=== PATIENT | male | born 1990 | race Caucasian/White ===

== ENCOUNTER 2024-09-03 17:33 | Inpatient (IN) | payer MEDICAID ==
[~2024-09-03] VITALS: Ht 185.4 cm; Wt 88.0 kg
[2024-09-03 18:36] LABS: BASOPHILS # (AUTO) 0.1 X10'3 (0-0.2); BASOPHILS % (AUTO) 0.5 % (0-1); EOSINOPHILS # (AUTO) 0.1 X10'3 (0-0.9); HEMATOCRIT 40.4 % (42.0-52.0); HEMOGLOBIN 13.7 g/dl (14.0-17.9); LYMPHOCYTES # (AUTO) 1.2 X10'3 (1.1-4.8); LYMPHOCYTES % (AUTO) 10.9 % (21-51); MEAN CORPUSCULAR HEMOGLOBIN 29.5 PG (27.0-31.0); MEAN CORPUSCULAR VOLUME 86.6 FL (78-98); MEAN PLATELET VOLUME 8.9 FL (7.4-10.4); MONOCYTES # (AUTO) 1.1 X10'3 (0-0.9); MONOCYTES % (AUTO) 10.2 % (2-12); NEUTROPHILS # (AUTO) 8.2 X10'3 (1.8-7.7); NEUTROPHILS % (AUTO) 77.4 % (42-75); PLATELET COUNT 201 X10'3 (140-440); RED BLOOD COUNT 4.66 X10'6 (4.70-6.10); RED CELL DISTRIBUTION WIDTH 13.6 % (11.5-14.5); WHITE BLOOD COUNT 10.5 X10'3 (4.5-11.0)
[2024-09-03 18:40] LABS: ALBUMIN 3.7 G/DL (3.4-5.0); ANION GAP 7 (8-16); BLOOD UREA NITROGEN 12 MG/DL (7-18); BUN/CREATININE RATIO 14.8 (10.0-20.0); CALCIUM 8.7 MG/DL (8.5-10.1); CHLORIDE 107 MMOL/L (99-107); CREATININE 0.81 MG/DL (0.60-1.10); GLUCOSE 98 MG/DL (70-104); POTASSIUM 3.9 MMOL/L (3.5-5.1); SODIUM 141 MMOL/L (135-145); TOTAL CARBON DIOXIDE 26.6 MMOL/L (24-32); eCRCL 142 ML/MIN; eGFR > 90 ML/MIN
[2024-09-03] MEDS: ampicillin/sulbac 3gm/NS 100ml 100 ML IV ONE (20:22)
[2024-09-03] MEDS ORDERED: magnesium Cl slow-release 64mg tablet PO PRN (20:55)
[2024-09-03] MEDS ORDERED: acetaminophen 325mg tablet PO PRN (20:55)
[2024-09-03] MEDS ORDERED: potassium Cl 40MEQ/1/2NS 520ml 520 ML IV PRN (20:55)
[2024-09-03] MEDS ORDERED: diphenhydrAMINE 50 mg/ml inj IV PRN (20:55)
[2024-09-03] MEDS ORDERED: ondansetron/PF 4mg/2ml inj IV PRN (20:55)
[2024-09-03] MEDS ORDERED: magnesium hydroxide 30ml (MOM) UD suspension PO PRN (20:55)
[2024-09-03] MEDS ORDERED: potassium Cl 20 mEq SR tablet PO PRN ×2 (20:55)
[2024-09-03] MEDS ORDERED: magnesium sulf-water 4G/100mL 100 ML IV PRN (20:55)
[2024-09-03] MEDS ORDERED: magnesium sulf-water 2g/50mL 50 ML IV PRN (20:55)
[2024-09-03] MEDS ORDERED: diphenhydrAMINE 25mg capsule PO PRN (20:55)
[2024-09-03] MEDS ORDERED: mag hydrox/Alum hydrox/simeth 30ml oral suspension PO PRN (20:55)
[2024-09-03] MEDS: morphine 2 MG/ML inj. syringe IV PRN (21:19)
[2024-09-03 21:31] LABS: APTT 27 SECONDS (22-32); PROTHROMBIN TIME 10.3 SECONDS (9.0-12.0)
[2024-09-03 21:34] LABS: HEMOGLOBIN A1C 5.1 % (4.5-6.2)
[2024-09-03 21:41] LABS: PRO BRAIN NATRIURETIC PEPTIDE 212 PG/ML (0-125)
[2024-09-03 23:05] VITALS: BP 130/80; PULSE 84; RESP 17; TEMP 99; O2SAT 98
[2024-09-03 23:30] VITALS: RESP 17; O2SAT 98
[2024-09-03] MEDS: HYDROmorphone inj. 0.5 MG/0.5 ML DISP.SYRIN IV PRN (23:32)
[2024-09-04] MEDS: ampicill/sulbac 1.5gm/NS 100ml 100 ML IV SCH (02:39)
[2024-09-04 04:56] LABS: BASOPHILS % (AUTO) 0.6 % (0-1); EOSINOPHILS # (AUTO) 0.2 X10'3 (0-0.9); EOSINOPHILS % (AUTO) 2.1 % (0-6); HEMATOCRIT 38.3 % (42.0-52.0); HEMOGLOBIN 12.9 g/dl (14.0-17.9); LYMPHOCYTES # (AUTO) 1.7 X10'3 (1.1-4.8); LYMPHOCYTES % (AUTO) 19.9 % (21-51); MEAN CORPUSCULAR HEMOGLOBIN 29.6 PG (27.0-31.0); MEAN CORPUSCULAR HGB CONC 33.6 g/dL (33.0-36.5); MEAN CORPUSCULAR VOLUME 88.1 FL (78-98); MEAN PLATELET VOLUME 8.7 FL (7.4-10.4); MONOCYTES # (AUTO) 1.1 X10'3 (0-0.9); MONOCYTES % (AUTO) 13.6 % (2-12); NEUTROPHILS # (AUTO) 5.3 X10'3 (1.8-7.7); NEUTROPHILS % (AUTO) 63.8 % (42-75); PLATELET COUNT 176 X10'3 (140-440); RED BLOOD COUNT 4.35 X10'6 (4.70-6.10); RED CELL DISTRIBUTION WIDTH 13.8 % (11.5-14.5); WHITE BLOOD COUNT 8.3 X10'3 (4.5-11.0)
[2024-09-04 05:18] LABS: ALANINE AMINOTRANSFERASE 26 U/L (12-78); ALBUMIN 3.1 G/DL (3.4-5.0); ALBUMIN/GLOBULIN RATIO 1.2 (1.1-1.5); ALKALINE PHOSPHATASE 45 IU/L (46-116); ANION GAP 4 (8-16); ASPARTATE AMINO TRANSFERASE 7 U/L (10-37); BILIRUBIN,TOTAL 0.5 MG/DL (0.1-1.0); BLOOD UREA NITROGEN 11 MG/DL (7-18); BUN/CREATININE RATIO 13.1 (10.0-20.0); CHLORIDE 107 MMOL/L (99-107); CREATININE 0.84 MG/DL (0.60-1.10); GLUCOSE 91 MG/DL (70-104); POTASSIUM 4.2 MMOL/L (3.5-5.1); SODIUM 142 MMOL/L (135-145); TOTAL CARBON DIOXIDE 31.2 MMOL/L (24-32); TOTAL PROTEIN 5.7 G/DL (6.4-8.2); eCRCL 137 ML/MIN; eGFR > 90 ML/MIN
[2024-09-04 06:00] VITALS: BP 100/65; PULSE 63; RESP 16; TEMP 98.4; O2SAT 98
[2024-09-04] MEDS: docusate sod 100mg capsule PO SCH (07:34)
[2024-09-04] MEDS: heparin, porcine 5000 units/ml vial SQ SCH (07:35)
[2024-09-04] MEDS: K and/or MAG REPLACEMENT MC SCH (07:36)
[2024-09-04 08:00] VITALS: RESP 18; O2SAT 100
[2024-09-04 10:00] VITALS: BP 110/60; PULSE 68; RESP 20; TEMP 98.5; O2SAT 99
[2024-09-04] MEDS ORDERED: NO HOME MEDS (16:17)
[2024-09-04 18:00] VITALS: BP 132/70; PULSE 98; RESP 16; TEMP 97.1; O2SAT 96
[2024-09-04 20:00] VITALS: RESP 16; O2SAT 98
[2024-09-04] MEDS: HYDROcodone/acetaminophen 5mg/325mg tablet PO PRN (21:42)
[2024-09-04 22:00] VITALS: BP 108/57; PULSE 66; RESP 18; TEMP 98.1; O2SAT 98
[2024-09-04] MEDS: HYDROcodone/acetaminophen 10/325mg tab PO ONE (23:24)
[2024-09-05 05:08] LABS: BASOPHILS % (AUTO) 0.6 % (0-1); EOSINOPHILS # (AUTO) 0.2 X10'3 (0-0.9); EOSINOPHILS % (AUTO) 3.3 % (0-6); HEMATOCRIT 38.9 % (42.0-52.0); HEMOGLOBIN 13.5 g/dl (14.0-17.9); LYMPHOCYTES # (AUTO) 1.5 X10'3 (1.1-4.8); LYMPHOCYTES % (AUTO) 28.8 % (21-51); MEAN CORPUSCULAR HEMOGLOBIN 30.1 PG (27.0-31.0); MEAN CORPUSCULAR HGB CONC 34.7 g/dL (33.0-36.5); MEAN CORPUSCULAR VOLUME 86.8 FL (78-98); MEAN PLATELET VOLUME 8.7 FL (7.4-10.4); MONOCYTES # (AUTO) 0.7 X10'3 (0-0.9); NEUTROPHILS # (AUTO) 2.8 X10'3 (1.8-7.7); NEUTROPHILS % (AUTO) 53.3 % (42-75); PLATELET COUNT 190 X10'3 (140-440); RED BLOOD COUNT 4.48 X10'6 (4.70-6.10); RED CELL DISTRIBUTION WIDTH 13.2 % (11.5-14.5); WHITE BLOOD COUNT 5.3 X10'3 (4.5-11.0)
[2024-09-05 05:26] LABS: ALANINE AMINOTRANSFERASE 25 U/L (12-78); ALBUMIN 3.3 G/DL (3.4-5.0); ALBUMIN/GLOBULIN RATIO 1.3 (1.1-1.5); ALKALINE PHOSPHATASE 43 IU/L (46-116); ANION GAP 5 (8-16); ASPARTATE AMINO TRANSFERASE 12 U/L (10-37); BILIRUBIN,TOTAL 0.5 MG/DL (0.1-1.0); BLOOD UREA NITROGEN 11 MG/DL (7-18); CALCIUM 8.1 MG/DL (8.5-10.1); CHLORIDE 106 MMOL/L (99-107); CREATININE 0.92 MG/DL (0.60-1.10); GLUCOSE 92 MG/DL (70-104); POTASSIUM 4.1 MMOL/L (3.5-5.1); SODIUM 140 MMOL/L (135-145); TOTAL CARBON DIOXIDE 29.1 MMOL/L (24-32); TOTAL PROTEIN 5.9 G/DL (6.4-8.2); eCRCL 125 ML/MIN; eGFR > 90 ML/MIN
[2024-09-05 10:00] VITALS: BP 134/75; PULSE 83; RESP 16; TEMP 98.1; O2SAT 98
[2024-09-05] MEDS ORDERED: AMOX-580 PO (12:06)
[2024-09-05] MEDS ORDERED: ACET-1008 PO ×2 (12:07→12:37)
[2024-09-05] MEDS ORDERED: IBUP-1985 PO ×2 (12:10→12:49)
[2024-09-05] MEDS ORDERED: HYDR-3965 PO (12:50)
[2024-09-05 15:19] VITALS: RESP 16
== END 2024-09-05 15:48 | disposition home or self-care (01) | DRG 383 ==
LOC: ER 17:35 → SUR 3N 21:00
PROVIDERS: ADMIT Internal Medicine Critical Care Medicine; ATTEND Internal Medicine
PROC: 3E0234Z Introduction of Serum, Toxoid and Vaccine into Muscle, Percutaneous Approach (ICD-10-PCS; principal; 2024-09-03)
DX: L03.114 Cellulitis of left upper limb (principal); S61.452A Open bite of left hand, initial encounter; Z91.09 Other allergy status, other than to drugs and biological substances; W55.01XA Bitten by cat, initial encounter; Y93.89 Activity, other specified; Y92.89 Other specified places as the place of occurrence of the external cause; Y99.8 Other external cause status
CPT/HCPCS: 36415; 71045; 73120; 80048; 80053; 83036; 83605; 83735; 83880; 84145; 85025; 85610; 85730; 86777; 87040; 87081; 96365; 96368; 96375; 99285; A6258; G0378; J0295; J1171; J2270

== ENCOUNTER 2024-11-11 12:36 | Inpatient (IN) | payer MEDICAID ==
[~2024-11-11] VITALS: Ht 185.4 cm; Wt 83.2 kg
[~2024-11-11 12:36] MED LIST: ACET-1008 PO; IBUP-1985 PO; NO HOME MEDS
[2024-11-11 13:04] VITALS: TEMP 98.8
[2024-11-11 13:22] LABS: BASOPHILS % (AUTO) 0.7 % (0-1); EOSINOPHILS # (AUTO) 0.1 X10'3 (0-0.9); HEMATOCRIT 48.5 % (42.0-52.0); HEMOGLOBIN 16.1 g/dl (14.0-17.9); LYMPHOCYTES # (AUTO) 1.3 X10'3 (1.1-4.8); LYMPHOCYTES % (AUTO) 19.9 % (21-51); MEAN CORPUSCULAR HGB CONC 33.2 g/dL (33.0-36.5); MEAN CORPUSCULAR VOLUME 87.3 FL (78-98); MEAN PLATELET VOLUME 8.9 FL (7.4-10.4); MONOCYTES # (AUTO) 0.8 X10'3 (0-0.9); MONOCYTES % (AUTO) 11.7 % (2-12); NEUTROPHILS # (AUTO) 4.3 X10'3 (1.8-7.7); NEUTROPHILS % (AUTO) 66.7 % (42-75); PLATELET COUNT 265 X10'3 (140-440); RED BLOOD COUNT 5.56 X10'6 (4.70-6.10); RED CELL DISTRIBUTION WIDTH 14.2 % (11.5-14.5); WHITE BLOOD COUNT 6.5 X10'3 (4.5-11.0)
--- NOTE | 2024-11-11 13:22 | ELECTROCARDIOGRAPH REPORT ---
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 Quinn Puri Measurements Intervals [place] Rate: 91 P: 61 SD: 108 QRS: -14 QRSD: 94 T: 51 QT: 333 QTc: 410 Interpretive Statements Sinus rhythm Short SD interval Probable left atrial enlargement Probable left ventricular hypertrophy Electronically Signed On 11-21-2024 18:43:[address] Quinn Puri Please click the below link to view image of tracing.
[2024-11-11 13:38] LABS: ALBUMIN 4.5 G/DL (3.4-5.0); ANION GAP 6 (8-16); BLOOD UREA NITROGEN 14 MG/DL (7-18); BUN/CREATININE RATIO 12.8 (10.0-20.0); CHLORIDE 101 MMOL/L (99-107); CREATININE 1.09 MG/DL (0.60-1.10); GLUCOSE 119 MG/DL (70-104); POTASSIUM 4.1 MMOL/L (3.5-5.1); PRO BRAIN NATRIURETIC PEPTIDE 98 PG/ML (0-125); SODIUM 138 MMOL/L (135-145); eCRCL 106 ML/MIN; eGFR 77 ML/MIN
--- NOTE | 2024-11-11 13:38 | RADIOLOGY REPORT ---
CHEST RADIOGRAPH Indication: CP Technique: Single frontal view of the chest was obtained COMPARISON: DI CHEST,SINGLE VIEW on DOS: 09/03/24 FINDINGS: Lines and Tubes: None Lungs: Clear Pleura: No effusion. No pneumothorax. Cardiomediastinal contours: Unremarkable Bones: Unremarkable IMPRESSION: No acute disease.
--- NOTE | 2024-11-11 14:09 | Physician Documentation ---
History of Present Illness ~ Chief Complaint: Chest Pain Stated Complaint: HEAD PAIN AND CP SOB SYNCOPE Time Seen by MD: 14:42 HPI 34 year old male with multiple recent negative cardiac workups at [facility], presents here reporting chest pain and would like another workup. Denies fever, cough, N/V/D, LOC, chest pain at this time. Pain is intermittent, sternal, nonradiating. Medication Reconciliation Allergies: Coded Allergies: nickel (Verified Allergy, Unknown, 09/03/24) Miscellaneous Medications Home Med List (No Home Medications), (Reported) Discontinued Medications Acetaminophen (Tylenol), 650 MG PO Q8H PRN for mild to moderate pain 1-6, (Reported) Discontinued Reason: patient no longer taking Ibuprofen (Ibuprofen), 1 TAB PO Q8H PRN for mild to moderate pain 1-6 Discontinued Reason: patient no longer taking Review of Systems All Other Systems at this time: Reviewed and Negative Physical Exam Vital Signs: RN Vital Signs have been reviewed: Yes, Temperature: 98.8, Source: Temporal, Heart Rate: 113, Respiratory Rate: 18, BP: 166/99, Pulse Oximetry: 99, Weight: 83.150 Physical Exam HEENT: PERRL, moist oral mucosa, EOMI Pulmonary: No respiratory distress Cardiac: RRR, no murmur, rub or gallop MSK: no deformity Skin: w/d/i, no rash Neuro: alert, nonfocal Psych: normal affect Progress Results/Orders Results/Orders Orders - PATRICIA VENCES MD Hospitalist (11/11/24 16:40) Vital Signs 11/11/24 11/11/24 11/11/24 13:04 14:36 16:27 Temp 98.8 Pulse 113 84 85 Resp 18 16 16 B/P (MAP) 166/99 150/95 (113) 124/89 (101) Pulse Ox 99 99 98 O2 Flow Rate 0 0 Laboratory Tests Test 11/11/24 12:42 11/11/24 13:42 White Blood Count 6.5 Red Blood Count 5.56 Hemoglobin 16.1 Hematocrit 48.5 Mean Corpuscular Volume 87.3 Mean Corpuscular Hemoglobin 29.0 Mean Corpuscular Hemoglobin Concent 33.2 Red Cell Distribution Width 14.2 Platelet Count 265 Mean Platelet Volume 8.9 Neutrophils (%) (Auto) 66.7 Lymphocytes (%) (Auto) 19.9 L Monocytes (%) (Auto) 11.7 Eosinophils (%) (Auto) 1.0 Basophils (%) (Auto) 0.7 Neutrophils # (Auto) 4.3 Lymphocytes # (Auto) 1.3 Monocytes # (Auto) 0.8 Eosinophils # (Auto) 0.1 Basophils # (Auto) 0.0 CBC Comment Sodium Level 138 Potassium Level 4.1 Chloride Level 101 Carbon Dioxide Level 31.0 Anion Gap 6 L Blood Urea Nitrogen 14 Creatinine 1.09 Estimated GFR/1.73 m2 77 BUN/Creatinine Ratio 12.8 Glucose Level 119 H Hemoglobin A1c 5.1 Lactic Acid Level 1.5 Calcium Level 9.0 Magnesium Level 2.2 Troponin I High Sensitivity 4 5 Pro-B-Type Natriuretic Peptide 98 Albumin 4.5 Chemistry Comments Troponin I High Sens Percent Delta 25 Troponin I Hi Sens Absolute Change 1 EKG/XRAY/CT/US/VASC/MRI EKG : Indication: chest pain EKG: NSR EKG Blocks: none [place]: normal Additional Comment my interpretation: no dysrhythmia or STEMI criteria, NSR Chest X-Ray : Interpreted By: self Views: 1 VIEW Indication: chest pain Lungs: normal Mediastinum: normal Ribs/Bones: normal Abdomen: normal Impression: no acute disease Medical Decision Making Findings 34 year old male with continued intermittent chest pain, very few risk factors, and multiple negative workups at outside facility. Our workup here today was also negative and we will admit him to our inpatient service for stress testing and possible echocardiogram. Differential Dx:Considerations: Include: angina, chest wall pain, costochondritis, esophageal reflux/spasm, gastritis, herpes zoster, myocardial infarction, pericarditis, pancreatitis, pneumonia, pneumothorax, pulmonary embolus Departure Disposition: ADMITTED INPATIENT Admission Level of Care: Med/Surg with Tele Impression: Primary Impression: Chest pain Condition: Stable Referrals: NO PRIMARY CARE PROVIDER (PCP) Education Educated: Patient Educated regarding: diagnosis, treatment, prognosis, need for follow up Additional Comment Medical Screen Exam History: This is a 34-year-old male with history of POTS who presents with sternal chest pain described as "pressure" radiating to his left arm with discomfort in left arm described as numbness". Patient reports that he has been seen [address] [facility] for this and discharged in the last four days including today. Exam: VITALS: Reviewed and as above. GENERAL: Alert, nontoxic appearing, no apparent distress. RESPIRATORY: No increased work of breathing, no respiratory distress, speaking in full clear sentences MSE performed in triage and patient returned to ED lobby by nursing staff to await available ED room ACS protocol initiated by nursing staff, patient is well-appearing and hemodynamically stable and appropriate to wait in the lobby. The note accurately reflects work and decisions made by me.SIGRID Shin 11/11/24 14:09 Signature Scribe Signature: . Attestation: . REI MANN Nov 11, 2024 14:09 PATRICIA VENCES MD Nov 11, 2024 19:01
[2024-11-11] MEDS ORDERED: potassium Cl 20 mEq SR tablet PO PRN ×2 (17:15)
[2024-11-11] MEDS ORDERED: ondansetron/PF 4mg/2ml inj IV PRN (17:15)
[2024-11-11] MEDS ORDERED: nitroGLYCERIN 0.4mg SUBLingual tab SL PRN ×2 (17:15)
[2024-11-11] MEDS ORDERED: mag hydrox/Alum hydrox/simeth 30ml oral suspension PO PRN (17:15)
[2024-11-11] MEDS ORDERED: magnesium sulf-water 2g/50mL 50 ML IV PRN (17:15)
[2024-11-11] MEDS ORDERED: regadenoson 0.4mg/5ml syringe IV PRN (17:15)
[2024-11-11] MEDS ORDERED: magnesium Cl slow-release 64mg tablet PO PRN (17:15)
[2024-11-11] MEDS ORDERED: aminophylline 500mg/20ml vial IV PRN (17:15)
[2024-11-11] MEDS ORDERED: metoprolol tartrate 1mg/ml inj IV PRN (17:15)
[2024-11-11] MEDS ORDERED: potassium Cl 40MEQ/1/2NS 520ml 520 ML IV PRN (17:15)
[2024-11-11] MEDS ORDERED: magnesium hydroxide 30ml (MOM) UD suspension PO PRN (17:15)
[2024-11-11] MEDS ORDERED: acetaminophen 325mg tablet PO PRN (17:15)
[2024-11-11] MEDS ORDERED: magnesium sulf-water 4G/100mL 100 ML IV PRN (17:15)
[2024-11-11] MEDS: aspirin 325mg tablet PO ONE (17:28)
[2024-11-11 17:31] VITALS: BP 135/86; PULSE 88; RESP 16; O2SAT 98
--- NOTE | 2024-11-11 17:42 | HISTORY AND PHYSICAL-Residence ---
History & Physical Providers to CC Resident Creating Document: RACHEL DECKER, RES ~ History of Present Illness Reason for Admit\Complaint: Chest pain History of Present Illness This is a 34-year-old male with a history of POTS (postural orthostatic tachycardia syndrome) presents to the ED with a chief complaint of chest pain. Patient states that he can not communicate well about his medical conditions and his girlfriend is his advocate. Patient is a very poor historian. He called his girlfriend and put her on the speaker to give more history. Per girlfriend, patient has had episodes of chest pain since Sunday (four days ago) and he visited the emergency department of [facility] two times since then. His pain is about 4/10, radiating to the left arm associated with tingling in the left arm. He also has a associated shortness of breath with exertion, can not walk more than 100 ft before getting short of breath. The he also states he has had orthopnea, PND and palpitations. He tracks his heart rate with a smart watch and has had several episodes of POTS in the past four days. He also mentions that his mother and father had heart attacks at a very early age and one of them when he was 4 years old. Per girlfriend he also had a mini tonic- clonic seizure episode which lasted for a minute during which he was shaking both of his arms and closed his eyes and was confused for a minute after the episode. Patient has a support dog. Allergies: Coded Allergies: nickel (Verified Allergy, Unknown, 09/03/24) Home Medications Home Medications Active Reported No Home Medications (Home Med List) Each Past Medical History Past Medical History Pots Past Surgical History Surgical History Comment Triceps surgery Past Social History Social History Comment Denies smoking, alcohol, drug use ROS ROS Reviewed and negative except for the pertinent positives in HPI Exam Vitals: Vital Signs Date Time Temp Pulse Resp B/P (MAP) Pulse Ox O2 Delivery O2 Flow Rate FiO2 11/11/24 17:31 88 16 135/86 (102) 98 0 11/11/24 13:04 98.8 General: General: well developed, well nourished. Awake , alert, and oriented x4, resting comfortably in the bed, in no acute distress . HEENT: Atraumatic, normocephalic, EOMI, anicteric sclera B; pink conjunctiva; PERRLA, normal oropharynx, moist oral and nasal mucosa. Tympanic membrane , nose , throat clear. Neck: Trachea midline. Supple, full range of motion, no JVD, bruit , hepatojugular reflex , lymphadenopathy or masses, or other lesions Cardiac: Regular rhythm, regular rate no murmurs, rubs, or gallops. Normal S1 and S2, no S3 noticed. PMI is normal. Respiratory: Equal breath sounds bilaterally, no tachypnea; lungs clear to auscultation bilaterally, no wheezing ,rub or rales, or crackles. Chest wall is symmetric and without deformity. No signs of trauma. Chest wall is nontender. No signs of respiratory distress. Resonance is normal upon percussion bilaterally. Gastrointestinal: Abdomen symmetric, non-distended, soft, non-tender, normal bowel sounds x4 quadrant, normoactive, no hepatosplenomegaly , no masses , no bruit, no flank pain bilaterally. No voluntary guarding, rebound, or rigidity. No tenderness to percussion. No pulsatile masses. Equal femoral pulses. No Polk's sign or McBurney point tenderness. Back; no CVA tenderness bilaterally, no deformities. Neck and back are without deformity as well. No tenderness noted on palpation of the spinous processes. Spinous processes are midline. Cervical, thoracic, and lumbar paraspinal muscles are not tender and are without spasm. : normal external genitalia, without lesions, swelling, masses or tenderness. Musculoskeletal: Extremities, normal range of motion, non-tender, muscle strength 5/5 x 4. Negative Homans signs bilaterally on lower extremity. Distal pulses full symmetrical, no clubbing, cyanosis , edema. Neurological: Speech is clear, alert, and oriented x 4. No motor or sensory deficit, deep tendon reflexes normal, cerebellar intact. Cranial nerves II-XII intact. Psych: Alert and or appropriate, normal affect. Vascular: Good distal pulses, which are equal x4; capillary refill less than 2 seconds. Skin: Warm, dry, no pallor, no rash or petechiae. Diagnostic Data Last Recorded Lab Results: 11/11/24 1242 11/11/24 1242 Advance Care Planning Advanced Care plannin - 30 Minutes (I spent a total of 17 minutes on reviewing various resuscitative measures/ ACP with the patient at the time of admission. The patient has decided on a full code status) Additional Plan Chest pain, suspicious for ACS Chest x-ray is unremarkable, serial troponins are negative. EKG shows no ST changes but shows possible LVH. CT chest with contrast ordered to rule out musculoskeletal etiology. Heart score is two. One dose of aspirin 324 mg, sublingual nitroglycerin p.r.n. given in the ED. continue aspirin 81 mg and atorvastatin 40 mg daily. NPO after midnight. Lexiscan in the a.m. continue telemetry monitoring. Check lipid panel and A1c. Patient getting echo currently results are not available History of POTS Orthostatic vitals ordered. Follow up New onset seizure versus pseudoseizures We will continue monitoring. Consider starting Keppra and do EEG if patient has another episode of seizure. Patient may benefit from a neurologist as an outpatient Code Status: Full code DVT Prophylaxis: Heparin Analgesia/Sedation: Tylenol PRN Lines/Tubes: PIV Gi Prophylaxis: None Nutrition: Heart healthy diet, NPO after midnight PT: Yes Prognosis: Guarded Disposition: Admit to PCU with telemetry monitoring Rachel Rios MD Internal Medicine Resident PGY-1 Patient is seen and examined in the ER bed 14 has constant chest pain x4 days history of POTS. Date of Service: Nov 11, 2024 Billing Provider: JULISSA GERONIMO MD Common Visit Codes: 07929-[id number] INP/OBS CARE (HIGH) RACHEL DECKER, RES Nov 11, 2024 17:42 JULISSA GERONIMO MD Nov 11, 2024 18:35
[2024-11-11 17:46] LABS: MAGNESIUM 2.2 MG/DL (1.5-2.4)
[2024-11-11 17:53] LABS: HEMOGLOBIN A1C 5.1 % (4.5-6.2)
[2024-11-11 17:58] LABS: APTT 26 SECONDS (22-32); INR 1.1 INR
[2024-11-11 17:59] LABS: PROTHROMBIN TIME 10.8 SECONDS (9.0-12.0)
[2024-11-11] MEDS: metoprolol succinate 25mg (24-HOUR) SR. Tablet PO SCH (18:11)
[2024-11-11] MEDS: atorvastatin 20mg tablet PO SCH (18:11)
[2024-11-11] MEDS ORDERED: iohexol 300mg/ml 100ml inj. ONE (18:18)
--- NOTE | 2024-11-11 19:06 | CARDIOLOGY REPORT ---
APPROVED REPORT EXAM: Comprehensive 2D, Doppler, and color-flow Echocardiogram. Patient Location: ER 14 Blood Pressure: 143/100 mmHg Heart Rate: 79 bpm Rhythm: SINUS Indications CHEST PAIN POTS 09/04 CHEST PAIN Process Environmental Technician: none Previous echo: none 2D Dimensions RVDd 3.0 cm IVSd 0.9 (0.7-1.1cm) LVDd 4.7 cm PWd 1.0 (0.7-1.1cm) IVSs 1.0 (0.8-1.2cm) LVDs 3.1 (2.5-4.0cm) PWs 1.4 (0.8-1.2cm) LVOT Diameter 2.28 (1.8-2.4cm) LVEF(%) 63.1 (>50%) FS (%) 34.2 % SV 63.9 ml CO 4.9 L/min M-Mode Dimensions Left Atrium(MM) 3.26 (2.5-4.0cm) Aortic Root 2.99 (2.2-3.7cm) Aortic Cusp Exc 2.44 (1.5-2.0cm) MV EPSS 0.7 (<0.5cm) Aortic Valve AoV Peak Efra. 113.4 cm/s AoV VTI 17.7 cm AO Peak GR. 5.1 mmHg AO Mean GR. 3 mmHg LVOT VTI 23.80 cm LVOT Peak Efra. 116.7 cm/s AILYN(VTI)/BSA 5.47 cm2/m2 AILYN (VTI) 5.47 cm2 Mitral Valve MV E Velocity 66.9 cm/s MV Peak Gr. 3 mmHg MV DECEL TIME 244 ms MV A Velocity 54.2 cm/s MV PHT 52 ms E/A Ratio 1.2 MVA (PHT) 4.23 cm2 MV VMax85.0 cm/s TDI Medial E' P. V 10.55 cm/s E/Medial E' 6.3 Tricuspid Valve TR P. Velocity 196 cm/s RAP ESTIMATE 5 mmHg TR Peak Gr. 15 mmHg RVSP 20 mmHg Pulmonary Vein S1 Velocity 63.9 cm/s D2 Velocity 51.5 cm/s PVa Mylfalwt38.2 cm/s PVa Iezqsrqs07 msec LEFT VENTRICLE Normal LV size and wall thickness. Overall systolic function is normal. Slight basal to mid inferior / inferoseptal hypokinesis. LVEF is 60-65%. RIGHT VENTRICLE RV is normal size and function. ATRIA The left atrium size is normal. AORTIC VALVE Trileaflet AV appears normal without stenosis or insufficiency. MITRAL VALVE Mild MV annular and leaflet thickening without stenosis. Trace regurgitation. TRICUSPID VALVE TV appears structurally normal with trace regurgitation. PULMONIC VALVE Normal PV without stenosis, physiologic insufficiency. GREAT VESSELS Aortic root is normal in size. Ascending aorta is normal in size. PERICARDIUM Normal pericardium. No effusion. Other Information Study Quality: Adequate Conclusion Normal LV size and wall thickness. Overall systolic function is normal. Slight basal to mid inferior / inferoseptal hypokinesis. LVEF is 60-65%. RV is normal size and function. The left atrium size is normal. Trileaflet AV appears normal without stenosis or insufficiency. Mild MV annular and leaflet thickening without stenosis. Trace regurgitation. TV appears structurally normal with trace regurgitation. Normal pericardium. No effusion.
--- NOTE | 2024-11-11 19:51 | RADIOLOGY REPORT ---
PROCEDURE: CT CT CHEST W/ IV CONTRAST 11/11/2024 06:54 PM INDICATION: Chest pain COMPARISON: None TECHNIQUE: Coverage: Thorax IV contrast: Administered Phases: Arterial Multiplanar 3-D Maximum Intensity Projection images (MIP) reconstructions were created by the techntristin gant in the coronal and sagittal planes as part of the CT angiography protocol. Adverse events: None Medication laboratory values were reviewed to verify the patient meets criteria for contrast administ ration. All CT scans at this medical facility are performed using dose modulation techniques as appropriate t o a performed exam including the following: Automated exposure control was utilized; adjustment of th e MA and/or KV according to patient size; and use of iterative reconstruction technique. Radiation dose: CTDIvol 13.8 mGy, DLP 591.43 mGy*cm. FINDINGS: Evaluation is mildly degraded by respiratory motion. Cardiovascular: No evidence of acute or chronic pulmonary emboli identified. Suboptimal evaluation of the subsegmental pulmonary arteries. Aorta is normal in caliber. The heart is normal in size. Lungs: No focal consolidation. No pleural effusion. No pneumothorax. The airways are patent. There ar e minimal scattered linear opacities which may reflect atelectasis or scarring. Thyroid: Unremarkable. Esophagus: Unremarkable. Lymphatics: No hilar or mediastinal lymphadenopathy. Bones/soft tissues: No acute abnormality. Upper abdomen: No acute abnormality. Other: None. IMPRESSION: 1. No acute intrathoracic abnormality identified.
[2024-11-11] MEDS ORDERED: heparin, porcine 5000 units/ml vial SQ SCH (20:00)
[2024-11-11] MEDS ORDERED: K and/or MAG REPLACEMENT MC SCH (20:00)
[2024-11-11] MEDS ORDERED: docusate sod 100mg capsule PO SCH (20:00)
[2024-11-12] MEDS ORDERED: aspirin 81mg, enteric-coated 1 TAB TABLET.DR PO SCH (08:00)
--- NOTE | 2024-11-12 18:49 | DISCHARGE SUMMARY-Residence ---
Discharge Summary Providers to CC Resident Creating Document: RACHEL DECKER, RES ~ Discharge Summary Admission Diagnosis: Chest pain Hospital Course DATE OF ADMISSION: 11/11/2024 DATE OF DISCHARGE: 11/11/2024 Discharge Diagnosis\Comment: Noncardiac chest pain, likely musculoskeletal History of POTS New onset seizure versus pseudoseizures Operations\Procedures: None Consultants: None Complications: None Condition on DC: Stable Discharge Summary: This is a 34-year-old male with a history of POTS (postural orthostatic tachycardia syndrome) presents to the ED with a chief complaint of chest pain. Patient states that he can not communicate well about his medical conditions and his girlfriend is his advocate. Patient is a very poor historian. He called his girlfriend and put her on the speaker to give more history. Per girlfriend, patient has had episodes of chest pain since Sunday (four days ago) and he visited the emergency department of [facility] two times since then. His pain is about 4/10, radiating to the left arm associated with tingling in the left arm. He also has a associated shortness of breath with exertion, can not walk more than 100 ft before getting short of breath. The he also states he has had orthopnea, PND and palpitations. He tracks his heart rate with a smart watch and has had several episodes of POTS in the past four days. He also mentions that his mother and father had heart attacks at a very early age and one of them when he was 4 years old. Per girlfriend he also had a mini tonic- clonic seizure episode which lasted for a minute during which he was shaking both of his arms and closed his eyes and was confused for a minute after the episode. Patient has a support dog. Hospital course: Chest pain, suspicious for ACS, Chest x-ray is unremarkable, serial troponins are negative. EKG shows no ST changes but shows possible LVH. CT chest with contrast ordered to rule out musculoskeletal etiology. Heart score is two. One dose of aspirin 324 mg, sublingual nitroglycerin p.r.n. given in the ED. continue aspirin 81 mg and atorvastatin 40 mg daily. NPO after midnight. Lexiscan in the a.m. continue telemetry monitoring. Orthostatic vitals negative Patient left AMA despite explaining the risks. He understands and wants to proceed with leaving against medical advice Vital Signs Date Time Temp Pulse Resp B/P (MAP) Pulse Ox O2 Delivery O2 Flow Rate FiO2 11/11/24 17:31 88 16 135/86 (102) 98 0 11/11/24 13:04 98.8 Laboratory Tests Test 11/11/24 12:42 11/11/24 13:42 11/11/24 17:38 White Blood Count 6.5 X10'3 Red Blood Count 5.56 X10'6 Hemoglobin 16.1 g/dl Hematocrit 48.5 % Mean Corpuscular Volume 87.3 FL Mean Corpuscular Hemoglobin 29.0 PG Mean Corpuscular Hemoglobin Concent 33.2 g/dL Red Cell Distribution Width 14.2 % Platelet Count 265 X10'3 Mean Platelet Volume 8.9 FL Neutrophils (%) (Auto) 66.7 % Lymphocytes (%) (Auto) 19.9 % Monocytes (%) (Auto) 11.7 % Eosinophils (%) (Auto) 1.0 % Basophils (%) (Auto) 0.7 % Neutrophils # (Auto) 4.3 X10'3 Lymphocytes # (Auto) 1.3 X10'3 Monocytes # (Auto) 0.8 X10'3 Eosinophils # (Auto) 0.1 X10'3 Basophils # (Auto) 0.0 X10'3 CBC Comment Sodium Level 138 MMOL/L Potassium Level 4.1 MMOL/L Chloride Level 101 MMOL/L Carbon Dioxide Level 31.0 MMOL/L Anion Gap 6 Blood Urea Nitrogen 14 MG/DL Creatinine 1.09 MG/DL Estimated GFR/1.73 m2 77 ML/MIN BUN/Creatinine Ratio 12.8 Glucose Level 119 MG/DL Hemoglobin A1c 5.1 % Lactic Acid Level 1.5 MMOL/L Calcium Level 9.0 MG/DL Magnesium Level 2.2 MG/DL Troponin I High Sensitivity 4 ng/L 5 ng/L Pro-B-Type Natriuretic Peptide 98 PG/ML Albumin 4.5 G/DL Chemistry Comments Troponin I High Sens Percent Delta 25 % Troponin I Hi Sens Absolute Change 1 ng/L Prothrombin Time 10.8 SECONDS INR International Normalized Ratio 1.1 INR Activated Partial Thromboplast Time 26 SECONDS Coagulation Comments *Problems/Diagnosis: (1) Chest pain Total Time Spent on D/C: > 30 Minutes Date of Service: Nov 11, 2024 Billing Provider: JULISSA GERONIMO MD Common Visit Codes: 61132-QTS/OBS DISCH DAY >30min RACHEL DECKER, RES Nov 12, 2024 18:49 JULISSA GERONIMO MD Nov 16, 2024 09:59
== END 2024-11-11 19:32 | disposition left against medical advice (07) | DRG 203 ==
LOC: ER 12:37 → PCU 3S 17:16
PROVIDERS: ADMIT Internal Medicine; ATTEND Internal Medicine
PROC: BW241ZZ Computerized Tomography (CT Scan) of Chest and Abdomen using Low Osmolar Contrast (ICD-10-PCS; principal; 2024-11-11)
DX: R07.89 Other chest pain (principal); R56.9 Unspecified convulsions; Z53.21 Procedure and treatment not carried out due to patient leaving prior to being seen by health care provider
CPT/HCPCS: 36415; 71045; 71260; 80048; 83036; 83605; 83735; 83880; 84484; 85025; 85610; 85730; 93005; 93306; 99285; G0378; Q9967

== ENCOUNTER 2025-01-16 09:42 | Emergency (ER) | payer OTHER, MEDICAID ==
[~2025-01-16] VITALS: Ht 188 cm; Wt 85.4 kg
[~2025-01-16 09:42] MED LIST changes: -ACET-1008 PO; -IBUP-1985 PO
--- NOTE | 2025-01-16 09:53 | ELECTROCARDIOGRAPH REPORT ---
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
[2025-01-16 10:12] LABS: MEAN PLATELET VOLUME 8.4 FL (7.4-10.4); RED CELL DISTRIBUTION WIDTH 13.9 % (11.5-14.5)
--- NOTE | 2025-01-16 10:15 | RADIOLOGY REPORT ---
CHEST RADIOGRAPH Indication: CP Technique: Single frontal view of the chest was obtained COMPARISON: CT CT CHEST W/ IV CONTRAST on DOS: 11/11/24, DI CHEST,SINGLE VIEW on DOS: 11/11/24, DI CHES T,SINGLE VIEW on DOS: 09/03/24 FINDINGS: Lines and Tubes: None Lungs: Clear Pleura: No effusion. No pneumothorax. Cardiomediastinal contours: Unremarkable Bones: Unremarkable IMPRESSION: No acute disease.
[2025-01-16 10:39] LABS: CREATININE 1.00 MG/DL (0.60-1.10); PRO BRAIN NATRIURETIC PEPTIDE 78 PG/ML (0-125); TOTAL CARBON DIOXIDE 27.9 MMOL/L (24-32); eCRCL 119 ML/MIN; eGFR 85 ML/MIN
--- NOTE | 2025-01-16 11:52 | Physician Documentation ---
History of Present Illness General Chief Complaint: Chest Pain Stated Complaint: CHEST WALL PAIN Time Seen by MD: 11:50 Mode of Arrival: EMS History of Present Illness Initial Comments The patient is a 34-year-old male who states he has a history of POTS disorder, the patient states he frequently has syncope. Patient states he had four episodes of syncope this morning starting at 4:00 a.m. this morning he states that one of his episodes he believes was 50 minutes long before he regained con sciousness. He states in the past he has had episodes that are 10-15 minutes long. He has also had some intermittent chest pain this morning which he states is similar to the pain he gets with his POTS syndrome. The patient states he struck his head this morning he also states he had an episode while he was in the emergency department which he also struck his head he is complaining of a moderate to severe frontal headache. The patient does have some abrasions and bruising to his forehead. The patient is denying any shortness of breath at this time. He states he also has a hole in his heart. Patient's symptoms are moderate and improving Medication Reconciliation Allergies: Coded Allergies: doxycycline (Verified Allergy, Unknown, 01/16/25) ketorolac (Verified Allergy, Unknown, 01/16/25) nickel (Verified Allergy, Unknown, 01/16/25) Miscellaneous Medications Home Med List (No Home Medications), (Reported) Past Medical History Other Past Medical History: Pots syndrome Review of Systems All Other Systems at this time: Reviewed and Negative Physical Exam Physical Exam Vital Signs: Heart Rate: 67, Respiratory Rate: 13, BP: 143/85, Pulse Oximetry: 97, Weight: 85.360 Physical Exam VITALS: Reviewed and as above. GENERAL: Alert, no apparent distress. HEENT: Normocephalic, atraumatic, PERRL, EOMI, dry mucosa, no erythema RESPIRATORY: Lungs clear, normal breath sounds, no respiratory distress. CHEST: No accessory muscle use, no retractions CV: Regular rate, rhythm, no edema, no murmur, No: JVD GI: Soft, non-tender, bowels sounds present, no rebound, guarding, or rigidity BACK: No CVA tenderness, or swelling MUSCULOSKELETAL: No deformities, no edema SKIN: Three small areas of ecchymosis 1 cm each to the forehead right side NEURO: Oriented x4, No motor or sensory deficit PSYCH: Normal mood and affect, no agitation Progress Results/Orders Results/Orders Orders - OHTEOFILO ORDAZ MD Chest,Single View (01/16/25 09:52) Monitor (01/16/25 09:52) Saline Lock (01/16/25 09:52) Oxygen (01/16/25 09:52) Ct Head (01/16/25 12:32) Completed Orders - TEOFILO ROA MD Chest,Single View (01/16/25 09:52) Cbc/Diff (01/16/25 09:52) BMP (01/16/25 09:52) PBNP (01/16/25 09:52) Electrocardiogram (01/16/25 09:52) Hs Troponin I W Calculations (01/16/25 09:52) Hs Troponin I W Calculations (01/16/25 11:52) Urinalysis, Cult If Indicated (01/16/25 11:50) Acetaminophen 1,000mg/100ml Iv (Ofirmev (01/16/25 12:25) Ct Head (01/16/25 12:32) Vital Signs 01/16/25 01/16/25 01/16/25 01/16/25 09:44 09:55 10:06 11:30 Pulse 66 67 69 Resp 20 13 13 18 B/P (MAP) 146/91 143/85 (104) 135/89 (104) Pulse Ox 100 97 99 O2 Flow Rate 0 01/16/25 01/16/25 01/16/25 12:02 12:50 13:27 Pulse 70 67 71 Resp 17 18 12 B/P (MAP) 131/84 (100) 134/98 (110) 134/98 Pulse Ox 98 98 99 O2 Flow Rate 0 0 Laboratory Tests Test 01/16/25 10:05 01/16/25 11:49 01/16/25 12:17 White Blood Count 4.4 L Red Blood Count 5.23 Hemoglobin 15.3 Hematocrit 45.0 Mean Corpuscular Volume 86.1 Mean Corpuscular Hemoglobin 29.2 Mean Corpuscular Hemoglobin Concent 34.0 Red Cell Distribution Width 13.9 Platelet Count 198 Mean Platelet Volume 8.4 Neutrophils (%) (Auto) 60.9 Lymphocytes (%) (Auto) 25.5 Monocytes (%) (Auto) 10.1 Eosinophils (%) (Auto) 2.3 Basophils (%) (Auto) 1.2 H Neutrophils # (Auto) 2.7 Lymphocytes # (Auto) 1.1 Monocytes # (Auto) 0.4 Eosinophils # (Auto) 0.1 Basophils # (Auto) 0.1 CBC Comment Sodium Level 140 Potassium Level 4.0 Chloride Level 106 Carbon Dioxide Level 27.9 Anion Gap 6 L Blood Urea Nitrogen 15 Creatinine 1.00 Estimated GFR/1.73 m2 85 BUN/Creatinine Ratio 15.0 Glucose Level 101 Calcium Level 9.0 Troponin I High Sensitivity 4 5 Pro-B-Type Natriuretic Peptide 78 Albumin 4.1 Chemistry Comments Urine Specimen Description Voided Urine Color Yellow Urine Clarity Clear Urine pH 8.0 Urine Specific [place] 1.015 Urine Protein Negative Urine Glucose (UA) Negative Urine Ketones Negative Urine Occult Blood Negative Urine Nitrite Negative Urine Bilirubin Negative Urine Urobilinogen 0.2 Urine Leukocyte Esterase Negative Urine Culture Indicated Not ind Volume Urine Centrifuged 10 ml Urine Comment Troponin I High Sens Percent Delta 25 Troponin I Hi Sens Absolute Change 1 EKG/XRAY/CT/US/VASC/MRI Chest X-Ray : Additional Comments Patient: QIANA PONCE Medical Record: [id number] [facility] : 1990, Age: 34 Sex: Male Location: ER Patient Status: REG ER Service Date/Time: 01/16/25951 Ordering Physician: TEOFILO ROA MD Exam: CHEST,SINGLE VIEW CHEST RADIOGRAPH Indication: CP Technique: Single frontal view of the chest was obtained COMPARISON: CT CT CHEST W/ IV CONTRAST on DOS: 11/11/24, DI CHEST,SINGLE VIEW on DOS: 11/11/24, DI CHEST,SINGLE VIEW on DOS: 09/03/24 FINDINGS: Lines and Tubes: None Lungs: Clear Pleura: No effusion. No pneumothorax. Cardiomediastinal contours: Unremarkable Bones: Unremarkable IMPRESSION: No acute disease. Electronically Signed by:CHRISTOPH SOUSA MD Date & Time: 01/16/25 101 Dictated by: CHRISTOPH SOUSA MD Dictation date and time: 01/16/25 1012 Primary Care Provider: NO PRIMARY CARE PROVIDER cc: TEOFILO ROA MD ~ CT : Impression Patient: QIANA PONCE Medical Record: [id number] [facility] : 1990, Age: 34 Sex: Male Location: ER Patient Status: [facility] ER Service Date/Time: 01/16/25/ 1232 Ordering Physician: TEOFILO ROA MD Exam: CT HEAD CLINICAL HISTORY: head injury TECHNIQUE: Helical scanning was performed of the head from the skull base to the vertex. Multiplanar reconstructions were performed. This exam was performed according to our departmental dose optimization program. Up-to-date CT equipment and radiation dose reduction techniques are utilized as appropriate. CTDI 62.1 DLP 174.6 COMPARISON: None FINDINGS: There is no evidence for acute intracranial hemorrhage, acute ischemic changes, mass, mass effect, or extra-axial fluid collection. There is no hydrocephalus or midline shift. There is no effacement of the cerebral sulci and basal subarachnoid cisterns. The choi-white matter differentiation is well maintained. The imaged paranasal sinuses are clear. IMPRESSION: NO ACUTE INTRACRANIAL ABNORMALITY SEEN. Electronically Signed by:UTE ACHARYA MD Date & Time: 01/16/25 1247 Dictated by: UTE ACHARYA MD Dictation date and time: 01/16/25 1232 Primary Care Provider: NO PRIMARY CARE PROVIDER cc: TEOFILO ROA MD ~ Medical Decision Making Findings Patient with syncopal episodes this morning and a headache patient has a negative head CT he was given IV Tylenol for his headache the patient states he is following up with the Cardiology we will also refer him to Cardiology. The patient is well-appearing in no distress. Labs were reviewed chest x-ray was independently interpreted by me as being a normal chest x-ray it has a normal cardiac silhouette normal mediastinum and normal-appearing lung west I interpreted the x-ray I have also reviewed the radiologist's interpretation and agree with their interpretation as well. The patient's EKG was interpreted as a sinus rhythm with a normal axis rate of 66 impression was a normal EKG. The patient has a history of syncopal episodes from POTS his monitoring coordinator was interpreted as sinus rhythm in his pulse oximetry was interpreted as normal and adequate. Prior hospitalizations were reviewed other etiologies considered but not supported by the clinical evidence as cardiac ischemia intracranial hemorrhage or mass were not supported by the CT imaging the patient will be discharged Departure Impression: Primary Impression: Syncope Qualified Codes: R55 - Syncope and collapse Additional Impression: Head injury Qualified Codes: S09.90XA - Unspecified injury of head, initial encounter Referrals: NO PRIMARY CARE PROVIDER (PCP) Signature Scribe Signature: No scribe Attestation: The note accurately reflects work and decisions made by me.Teofilo Roa MD 01/16/25 15:51 TEOFILO ROA MD Jan 16, 2025 11:52
[2025-01-16 12:14] LABS: LEUKOCYTE ESTERASE ,URINE NEGATIVE (Neg); NITRITES, URINE NEGATIVE (Neg); OCCULT BLOOD,URINE NEGATIVE (Neg)
[2025-01-16 12:20] LABS: UA COLLECTION TYPE VOIDED
[2025-01-16] MEDS: acetaminophen 1,000mg/100ml IV 100 ML IV ONE (12:49)
--- NOTE | 2025-01-16 12:49 | RADIOLOGY REPORT ---
CLINICAL HISTORY: head injury TECHNIQUE: Helical scanning was performed of the head from the skull base to the vertex. Multiplanar reconstructions were performed. This exam was performed according to our departmental dose optimizat ion program. Up-to-date CT equipment and radiation dose reduction techniques are utilized as appropri ate. CTDI 62.1 DLP 174.6 COMPARISON: None FINDINGS: There is no evidence for acute intracranial hemorrhage, acute ischemic changes, mass, mass effect, or extra-axial fluid collection. There is no hydrocephalus or midline shift. There is no effacement of the cerebral sulci and basal subarachnoid cisterns. The choi-white matter differentiation is well ivana ntained. The imaged paranasal sinuses are clear. IMPRESSION: NO ACUTE INTRACRANIAL ABNORMALITY SEEN.
[2025-01-16 13:27] VITALS: BP 134/98; PULSE 71; RESP 12; O2SAT 99
== END 2025-01-16 13:43 | disposition home or self-care (01) ==
LOC: ER 09:43
DX: R55 Syncope and collapse (principal); S09.90XA Unspecified injury of head, initial encounter; R06.02 Shortness of breath; G90.A Postural orthostatic tachycardia syndrome [POTS]; Z88.1 Allergy status to other antibiotic agents; X58.XXXA Exposure to other specified factors, initial encounter; Y93.89 Activity, other specified; Y92.89 Other specified places as the place of occurrence of the external cause; Y99.8 Other external cause status
CPT/HCPCS: 36415; 70450; 71045; 80048; 81003; 83880; 84484; 85025; 93005; 96365; 99285; J0131

== ENCOUNTER 2025-01-20 08:48 | Emergency (ER) | payer OTHER, MEDICAID ==
[~2025-01-20] VITALS: Ht 188 cm; Wt 90.0 kg
--- NOTE | 2025-01-20 08:59 | Physician Documentation ---
History of Present Illness ~ Stated Complaint: HEAD INJURY Time Seen by MD: 08:54 HPI 34-year-old male, history of POTS, presenting with frequent falls and head injury He tells me that he has had pots for very long time, and frequently has episodes of fainting and falls. Over the past several days he has had increased episodes including multiple falls, including head injury. He tells me he has been having intermittent headaches, as well as some nausea and vomiting. He has chronic diarrhea. He has been trying to drink fluids and electrolytes including salt. No fevers or infectious symptoms. No other injuries. Medication Reconciliation Allergies: Coded Allergies: doxycycline (Verified Allergy, Unknown, 01/20/25) ketorolac (Verified Allergy, Unknown, 01/20/25) nickel (Verified Allergy, Unknown, 01/20/25) Miscellaneous Medications Home Med List (No Home Medications), (Reported) Review of Systems Constitutional: Denies: fever Gastrointestinal: Reports: nausea, vomiting, diarrhea; Denies: abdominal pain Neurological: Reports: headache, fainting Physical Exam Physical Exam General: This is a well-appearing young man, with obvious head injuries, service dog on the bed HEENT: The patient has multiple healing abrasions of the forehead. Lips appear moist Heart: Regular rate and rhythm, heart rate in the 70s currently, appears sinus rhythm on the monitor, normal-appearing peripheral perfusion Lungs: normal work of breathing, normal oxygen saturation on room air Abdomen: Soft, nondistended, nontender all quadrants Extremities: No significant traumatic findings Neuro: Alert and oriented Psychiatric: Calm and cooperative with exam Progress Results/Orders Results/Orders Orders - ELLA LAO MD Ct Head (01/20/25 08:50) Chest,Single View (01/20/25 09:26) Monitor (01/20/25 09:26) Saline Lock (01/20/25 09:26) Oxygen (01/20/25 09:26) Hs Troponin I W Calculations (01/20/25 12:26) Completed Orders - ELLA LAO MD Ct Head (01/20/25 08:50) Chest,Single View (01/20/25 09:26) Cbc/Diff (01/20/25 09:26) BMP (01/20/25 09:26) PBNP (01/20/25 09:26) Electrocardiogram (01/20/25 09:26) Hs Troponin I W Calculations (01/20/25 09:26) Hs Troponin I W Calculations (01/20/25 11:26) Normal Saline 1000ml (0.9% Sodium Chlori (01/20/25 10:30) Ondansetron Inj. (Zofran 4mg/2ml Vial) (01/20/25 10:30) Orphenadrine Citrate Inj. (Norflex Inj.) (01/20/25 10:55) Oxycodone Immed Release Tablet (Oxy Ir T (01/20/25 13:20) Medications Received in ER Medications (Trade) Dose Ordered Sig/Allison Route PRN Reason Start Time Stop Time Status Last Admin Dose Admin (OXY IR tablet) 5 mg ONCE ONCE PO 01/20/25 13:20 01/20/25 13:21 DC 01/20/25 13:44 5 MG Vital Signs 01/20/25 01/20/25 01/20/25 01/20/25 09:04 09:21 11:32 13:39 Temp 97.8 98.5 Pulse 72 84 60 Resp 18 16 16 16 B/P (MAP) 144/88 129/81 (97) 122/71 Pulse Ox 98 99 99 O2 Flow Rate 0 01/20/25 01/20/25 13:44 13:45 Resp 16 16 Laboratory Tests Test 01/20/25 08:56 01/20/25 11:39 White Blood Count 5.4 Red Blood Count 5.14 Hemoglobin 15.1 Hematocrit 44.7 Mean Corpuscular Volume 86.9 Mean Corpuscular Hemoglobin 29.4 Mean Corpuscular Hemoglobin Concent 33.9 Red Cell Distribution Width 13.8 Platelet Count 189 Mean Platelet Volume 8.6 Neutrophils (%) (Auto) 58.5 Lymphocytes (%) (Auto) 25.2 Monocytes (%) (Auto) 11.8 Eosinophils (%) (Auto) 3.2 Basophils (%) (Auto) 1.3 H Neutrophils # (Auto) 3.1 Lymphocytes # (Auto) 1.4 Monocytes # (Auto) 0.6 Eosinophils # (Auto) 0.2 Basophils # (Auto) 0.1 CBC Comment Sodium Level 141 Potassium Level 4.2 Chloride Level 107 Carbon Dioxide Level 25.5 Anion Gap 9 Blood Urea Nitrogen 18 Creatinine 0.86 Estimated GFR/1.73 m2 > 90 BUN/Creatinine Ratio 20.9 H Glucose Level 100 Calcium Level 8.7 Troponin I High Sensitivity 4 6 Pro-B-Type Natriuretic Peptide 83 Albumin 3.7 Chemistry Comments Troponin I High Sens Percent Delta 50 Troponin I Hi Sens Absolute Change 2 EKG/XRAY/CT/US/VASC/MRI EKG : Additional Comment I personally interpreted the EKG and this shows: Sinus rhythm, rate 73, QTC 407, early repolarization Chest X-Ray : Additional Comments I personally reviewed the x-ray, and it shows: No focal consolidation, pulmonary edema, mediastinal widening CT : Impression I personally reviewed the CT scan, and this shows no intracranial hemorrhage Medical Decision Making Additional Comment The patient presents with multiple falls after worsening pots syndromes. He does have evidence of head injury. Head CT without acute fracture or intracranial hemorrhage. His laboratory testing overall was unremarkable, no acute kidney injury or significant electrolyte derangement. No evidence of dangerous heart or lung problem. He was given aggressive IV fluid hydration as well as nausea medicine. Following this he felt slightly better. Overall, he does not appear to have an acute medical or surgical emergency, his symptoms all seem related to his chronic POTS. He will be discharged with ongoing symptomatic treatment and outpatient follow up. Departure Time of Disposition: 13:15 Disposition: 01 HOME / SELF CARE / HOMELESS Impression: Primary Impression: Syncope Additional Impression: POTS (postural orthostatic tachycardia syndrome) Condition: Stable Referrals: NO PRIMARY CARE PROVIDER (PCP) Education Educated: Patient Educated regarding: diagnosis, treatment Signature Scribe Signature: karin Attestation: ELLA Torres MD Jan 20, 2025 08:59
--- NOTE | 2025-01-20 09:19 | RADIOLOGY REPORT ---
CLINICAL HISTORY: hx brain bleed TECHNIQUE: Helical scanning was performed of the head from the skull base to the vertex. Multiplanar reconstructions were performed. This exam was performed according to our departmental dose optimizat ion program. Up-to-date CT equipment and radiation dose reduction techniques are utilized as appropri ate. CTDI 65.5 DLP 1231.3 COMPARISON: CT CT HEAD on DOS: 01/16/25 FINDINGS: There is no evidence for acute intracranial hemorrhage, acute ischemic changes, mass, mass effect, or extra-axial fluid collection. There is no hydrocephalus or midline shift. There is no effacement of the cerebral sulci and basal subarachnoid cisterns. The choi-white matter differentiation is well ivana ntained. The imaged paranasal sinuses are clear. IMPRESSION: NO ACUTE INTRACRANIAL ABNORMALITY SEEN.
[2025-01-20 09:39] LABS: MEAN PLATELET VOLUME 8.6 FL (7.4-10.4); RED CELL DISTRIBUTION WIDTH 13.8 % (11.5-14.5)
--- NOTE | 2025-01-20 09:39 | ELECTROCARDIOGRAPH REPORT ---
[facility] Test Date: 2025-01-20 Test Time: 09:37:36 Pat Name: QIANA PONCE Department: [facility]-ER Patient ID: [facility]-[id number] Room: Gender: M Zoning Assistant: : 1990 Requested By: ELLA LAO Order Number: [id number] Reading MD: Measurements Intervals Casa Rate: 73 P: 53 MD: 114 QRS: 0 QRSD: 97 T: 48 QT: 369 QTc: 407 Interpretive Statements Sinus rhythm Borderline short MD interval ST elev, probable normal early repol pattern Please click the below link to view image of tracing.
--- NOTE | 2025-01-20 09:46 | RADIOLOGY REPORT ---
CHEST RADIOGRAPH Indication: CP Technique: Single frontal view of the chest was obtained COMPARISON: DI CHEST,SINGLE VIEW on DOS: 01/16/25, CT CT CHEST W/ IV CONTRAST on DOS: 11/11/24, DI CHES T,SINGLE VIEW on DOS: 11/11/24, DI CHEST,SINGLE VIEW on DOS: 09/03/24 FINDINGS: Lines and Tubes: None Lungs: Clear Pleura: No effusion. No pneumothorax. Cardiomediastinal contours: Unremarkable Bones: Unremarkable IMPRESSION: No acute disease.
[2025-01-20 09:59] LABS: CREATININE 0.86 MG/DL (0.60-1.10); PRO BRAIN NATRIURETIC PEPTIDE 83 PG/ML (0-125); TOTAL CARBON DIOXIDE 25.5 MMOL/L (24-32); eCRCL 138 ML/MIN; eGFR > 90 ML/MIN
[2025-01-20] MEDS: ondansetron/PF 4mg/2ml inj IV ONE (10:39)
[2025-01-20] MEDS: normal saline 1000ML IV soln IVB ONE (10:43)
[2025-01-20] MEDS: orphenadrine citrate 60mg/2ml inj. IV ONE (11:28)
[2025-01-20 13:39] VITALS: BP 122/71; PULSE 60; TEMP 98.5; O2SAT 99
[2025-01-20] MEDS: oxyCODONE IR 5mg (immed. release) tablet PO ONE (13:44)
[2025-01-20 13:45] VITALS: RESP 16
== END 2025-01-20 13:45 | disposition home or self-care (01) ==
LOC: ER 08:48
DX: R55 Syncope and collapse (principal); G90.A Postural orthostatic tachycardia syndrome [POTS]; R06.02 Shortness of breath; Z88.1 Allergy status to other antibiotic agents
CPT/HCPCS: 36415; 70450; 71045; 80048; 83880; 84484; 85025; 93005; 96361; 96374; 96375; 99285; J2360; J2405; J7030